=== PATIENT | male | born 1985 | race Caucasian/White ===

== ENCOUNTER 2020-04-09 13:24 | Emergency (ER) | payer MEDICAID ==
[2020-04-09 13:42] VITALS: BP 130/89
--- NOTE | 2020-04-09 13:44 | ED Physician Documentation ---
PD HPI MHE - Stated complaint Stated Complaint: MED REFILL - Chief complaint Chief Complaint: General - History obtained from History obtained from: Patient - History of Present Illness Primary symptom: Depression, Out of meds. No: Psychosis, Manic Timing - onset: How many days ago (had run out of some meds few days ago and now also his Seroquel, which he feels helps a lot. Was supposed to have appt with PCP/Psychiatry last Thursday but it was postponed until next week. Has appt now on the . Needs some meds until then. Has several of his meds still in supply, just needs 4 of them.) Contributing factors: No: Substance abuse - ETOH, Substance abuse - drugs Similar symptoms before: Diagnosis (bipolar disorder) Review of Systems Constitutional: denies: Fever, Chills Nose: denies: Rhinorrhea / runny nose, Congestion Throat: denies: Sore throat Respiratory: denies: Cough GI: denies: Vomiting, Diarrhea Neurologic: denies: Altered mental status, Headache, Head injury PD PAST MEDICAL HISTORY - Past Medical History Psych: Bipolar disorder - Present Medications Home Medications: Ambulatory Orders Medication Instructions Recorded Confirmed [place] ER [Lithobid] 300 mg PO BID #30 tablet 04/09/20 PARoxetine [Paxil] 10 mg PO DAILY #10 tablet 04/09/20 Prazosin HCl 2 mg PO QPM #10 capsule 04/09/20 QUEtiapine [SEROquel] 100 mg PO BID #30 tablet 04/09/20 - Allergies Allergies/Adverse Reactions: Allergies Allergy/AdvReac Type Severity Reaction Status Date / Time No Known Drug Allergies Allergy Verified 04/09/20 13:38 PD ED PE NORMAL - Vitals Vital signs reviewed: Yes - General General: Alert and oriented X 3, No acute distress, Well developed/nourished - HEENT HEENT: Pharynx benign - Neck Neck: Supple, no meningeal sign, No adenopathy - Cardiac Cardiac: RRR, No murmur - Respiratory Respiratory: Clear bilaterally - Derm Derm: Normal color, Warm and dry - Neuro Neuro: Alert and oriented X 3, No motor deficit, Normal speech Results - Vitals Vitals: Vital Signs - 24 hr 04/09/20 04/09/20 13:28 13:32 Temperature 36.8 C 36.8 C Heart Rate 75 75 Respiratory 16 16 Rate Blood Pressure 130/89 H 130/89 H O2 Saturation 99 99 Oxygen O2 Source Room air PD MEDICAL DECISION MAKING - ED course Complexity details: reviewed old records, considered differential (seems reasonable to give Rx for time until has PCP appt, as it was postponed by office and not of patient's doing apparently. ), d/w patient Departure - Departure Disposition: Home, Self Care Clinical Impression: No mechanism for timely refill of medication Bipolar disorder Qualifiers: Active/Remission status: remission status unspecified Qualified Code(s): F31.9 - Bipolar disorder, unspecified Condition: Stable Record reviewed to determine appropriate education?: Yes Prescriptions: [place]ix ER [Lithobid] 300 mg PO BID #30 tablet PARoxetine [Paxil] 10 mg PO DAILY #10 tablet Prazosin HCl 2 mg PO QPM #10 capsule QUEtiapine [SEROquel] 100 mg PO BID #30 tablet Comments: Continue usual medications. I wrote a prescription for 10 days worth which to get you to your appointment scheduled for the eighth and then if it takes a few days to get your prescriptions refilled. Stay well-hydrated. Discharge Date/Time: 04/09/20 14:28
[2020-04-09] MEDS: QUEtiapine 100 MG TABLET PO STA (14:16)
== END 2020-04-09 14:28 | disposition home or self-care (01) ==
LOC: ED 13:24
DX: F31.9 Bipolar disorder, unspecified (principal); Z76.0 Encounter for issue of repeat prescription
CPT/HCPCS: 99282; 99283; A9270

== ENCOUNTER 2020-06-29 11:13 | Outpatient (CLI) | payer MEDICAID ==
[2020-06-29 15:02] LABS: BASOPHILS # (AUTO) 0.1 10^3/uL (0.0-0.1); BASOPHILS % (AUTO) 0.8 %; EOSINOPHILS # (AUTO) 0.5 10^3/uL (0.0-0.7); HGB - HEMOGLOBIN 14.7 g/dL (14.0-18.0); LYMPHOCYTES # (AUTO) 2.5 10^3/uL (1.5-3.5); LYMPHOCYTES % (AUTO) 32.1 %; MEAN CORPUSCULAR HEMOGLOBIN 29.1 pg (27.0-31.0); MEAN CORPUSCULAR HGB CONC 32.8 g/dL (32.0-36.0); MEAN CORPUSCULAR VOLUME 88.5 fL (80.0-94.0); MEAN PLATELET VOLUME 10.2 fL (7.4-11.4); MONOCYTES # (AUTO) 0.5 10^3/uL (0.0-1.0); MONOCYTES % (AUTO) 6.6 %; NEUTROPHILS # (AUTO) 4.2 10^3/uL (1.5-6.6); PLT - PLATELET COUNT 372 10^3/uL (130-450); RED BLOOD COUNT 5.06 10^6/uL (4.70-6.10); RED CELL DISTRIBUTION WIDTH 13.9 % (12.0-15.0); WHITE BLOOD COUNT 7.8 x10^3/uL (4.8-10.8)
[2020-06-29 15:28] LABS: ALBUMIN 4.2 g/dL (3.2-5.5); ALBUMIN/GLOBULIN RATIO 1.2 (1.0-2.2); BILIRUBIN,TOTAL 0.6 mg/dL (0.2-1.0); CALCIUM 9.6 mg/dL (8.5-10.3); CREATININE 0.9 mg/dL (0.6-1.2); LITHIUM 0.17 mmol/L; TOTAL PROTEIN 7.8 g/dL (6.7-8.2)
== END 2020-06-29 11:14 | disposition home or self-care (01) ==
LOC: LAB.S 11:13
PROVIDERS: ATTEND Nurse Practitioner Psychiatric/Mental Health
DX: F33.3 Major depressive disorder, recurrent, severe with psychotic symptoms (principal)
CPT/HCPCS: 36415; 80053; 80178; 85025

== ENCOUNTER 2021-05-16 17:34 | Emergency (ER) | payer MEDICAID ==
[2021-05-16] MEDS ORDERED: AMPICILLIN/SULBACTAM 3 GM in SODIUM CHLORIDE 0.9% MINIBAG 100 ML IV STA (17:59)
[2021-05-16] MEDS ORDERED: VANCOMYCIN INJ 2 GM in SODIUM CHLORIDE 0.9% 500 ML IV STA (17:59)
--- NOTE | 2021-05-16 18:00 | ED Physician Documentation ---
PD HPI HEAD INJURY - Stated complaint Stated Complaint: LT HAND INJ - Chief complaint Chief Complaint: Wound - History obtained from History obtained from: Patient (36-year-old right-handed gentleman who is up-to-date on tetanus accidentally sustained a puncture wound to the left middle finger by a nail yesterday and overnight developed significant pain and swelling of that digit and the pain is tracking up the palm of the hand.) Review of Systems Ten Systems: 10 systems reviewed and negative Constitutional: reports: Reviewed and negative Eyes: reports: Reviewed and negative Ears: reports: Reviewed and negative Nose: reports: Reviewed and negative PD PAST MEDICAL HISTORY - Past Medical History Psych: Bipolar disorder - Present Medications Home Medications: Ambulatory Orders Medication Instructions Recorded Confirmed [place] ER [Lithobid] 300 mg PO BID #30 tablet 04/09/20 05/16/21 PARoxetine [Paxil] 10 mg PO DAILY #10 tablet 04/09/20 05/16/21 Prazosin HCl 2 mg PO QPM #10 capsule 04/09/20 05/16/21 QUEtiapine [SEROquel] 100 mg PO BID #30 tablet 04/09/20 05/16/21 Amox/Clav 875/125 [Augmentin] 1 each PO Q12H #20 tablet 05/16/21 HYDROcod/ACETAM 5/325 [[place] 5/325] 1 - 2 tab PO Q6H PRN #15 tablet 05/16/21 Sulfamethox/Trimeth 800/160 1 each PO BID #14 tablet 05/16/21 [Bactrim Ds 800/160] - Allergies Allergies/Adverse Reactions: Allergies Allergy/AdvReac Type Severity Reaction Status Date / Time No Known Drug Allergies Allergy Verified 04/09/20 13:38 PD ED PE NORMAL - Vitals Vital signs reviewed: Yes - General General: Alert and oriented X 3, No acute distress - HEENT HEENT: PERRL, EOMI - Neck Neck: Supple, no meningeal sign, No bony TTP - Cardiac Cardiac: RRR, No murmur - Respiratory Respiratory: No respiratory distress, Clear bilaterally - Abdomen Abdomen: Non tender - Extremities Extremities: Other (Mild swelling of the proximal part of the third digit and held in slight flexion and pain with extension of that digit. He is tender but not cellulitic along the flexor tendon sheath of the left third digit. Good range of motion at the wrist.) - Neuro Neuro: Alert and oriented X 3, Normal speech Results - Vitals Vitals: Vital Signs - 24 hr 05/16/21 17:43 Temperature 36 C L Heart Rate 81 Respiratory 16 Rate Blood Pressure 136/84 H O2 Saturation 99 Oxygen O2 Source Room air - Labs Labs: Laboratory Tests 05/16/21 05/16/21 18:11 18:11 WBC 13.0 H RBC 5.00 Hgb 14.2 Hct 43.2 MCV 86.4 MCH 28.4 MCHC 32.9 RDW 13.6 Plt Count 326 MPV 9.6 Neut # (Auto) 8.1 H Lymph # (Auto) 3.2 [place] # (Auto) 1.1 H Eos # (Auto) 0.6 Baso # (Auto) 0.1 Absolute Nucleated RBC 0.00 Nucleated RBC % 0.0 Sodium 134 L Potassium 3.4 L Chloride 102 Carbon Dioxide 23 Anion Gap 9.0 BUN 12 Creatinine 1.0 Estimated GFR (MDRD) 84 L Glucose 100 Calcium 9.2 PD MEDICAL DECISION MAKING - ED course ED course: 36-year-old gentleman with early case of flexor tenosynovitis. X-ray shows no bony involvement. He was administered Unasyn and vancomycin here. Case was discussed with our orthopedic surgeon, Dr. Tereso Elliott who would like to see him early tomorrow at 9 AM in his clinic. Departure - Departure Disposition: 01 Home, Self Care Clinical Impression: Flexor tenosynovitis of finger Condition: Good Record reviewed to determine appropriate education?: Yes Instructions: Tendonitis and Tenosynovitis Follow-Up: Tereso Elliott MD [Provider Admit Priv/Credential] - Prescriptions: Amox/Clav 875/125 [Augmentin] 1 each PO Q12H #20 tablet Sulfamethox/Trimeth 800/160 [Bactrim Ds 800/160] 1 each PO BID #14 tablet HYDROcod/ACETAM 5/325 [[place] 5/325] 1 - 2 tab PO Q6H PRN #15 tablet PRN Reason: Pain Comments: You are seen today for an early case of flexor tenosynovitis of the left hand, well this is an early case and we are starting broad-spectrum antibiotics, it will need to be followed very closely to make sure it is not worsening or need operative drainage. To that end our orthopedic surgeon is aware of your case and would like to see you tomorrow, first thing in his clinic at 9 AM. It is in [place]. They should be expecting you. If you do have any troubles, let them know that he I spoke this evening about your case. Keep it elevated as much as possible.
[2021-05-16 18:21] LABS: BASOPHILS # (AUTO) 0.1 10^3/uL (0.0-0.1); BASOPHILS % (AUTO) 0.6 %; EOSINOPHILS # (AUTO) 0.6 10^3/uL (0.0-0.7); EOSINOPHILS % (AUTO) 4.2 %; HCT - HEMATOCRIT 43.2 % (42.0-52.0); HGB - HEMOGLOBIN 14.2 g/dL (14.0-18.0); LYMPHOCYTES # (AUTO) 3.2 10^3/uL (1.5-3.5); LYMPHOCYTES % (AUTO) 24.7 %; MEAN CORPUSCULAR HEMOGLOBIN 28.4 pg (27.0-31.0); MEAN CORPUSCULAR HGB CONC 32.9 g/dL (32.0-36.0); MEAN CORPUSCULAR VOLUME 86.4 fL (80.0-94.0); MEAN PLATELET VOLUME 9.6 fL (7.4-11.4); MONOCYTES # (AUTO) 1.1 10^3/uL (0.0-1.0); MONOCYTES % (AUTO) 8.2 %; NEUTROPHILS # (AUTO) 8.1 10^3/uL (1.5-6.6); NEUTROPHILS % (AUTO) 61.8 %; PLT - PLATELET COUNT 326 10^3/uL (130-450); RED CELL DISTRIBUTION WIDTH 13.6 % (12.0-15.0)
--- NOTE | 2021-05-16 18:23 | XRAY Report ---
PROCEDURE: Hand 3 View LT INDICATIONS: hand inj TECHNIQUE: 3 views of the hand(s) acquired. COMPARISON: None FINDINGS: Bones: No fractures or dislocations. No suspicious bony lesions. Soft tissues: No suspicious soft tissue calcifications. Soft tissue swelling is noted along the vola r surface of the third digit without radiopaque foreign body. IMPRESSION: Soft tissue swelling without fracture or foreign body Reviewed by: Brian Bal MD on 05/16/2021 5:21 PM AKDT Approved by: Brian Bal MD on 05/16/2021 5:21 PM AKDT Station ID: [id number]
[2021-05-16] MEDS ORDERED: KETOROLAC 30 MG/ML VIAL IVP STA (18:27)
[2021-05-16] MEDS ORDERED: HYDROmorphone 1 MG/ML CARPUJECT IVP STA (18:27)
[2021-05-16 18:29] LABS: CALCIUM 9.2 mg/dL (8.5-10.3); POTASSIUM 3.4 mmol/L (3.5-5.0)
[2021-05-16] MEDS ORDERED: HYDROcod/ACET 5/325 Prepack 4 PO STA (20:38)
[2021-05-16 21:17] VITALS: BP 130/76
== END 2021-05-16 21:18 | disposition home or self-care (01) ==
LOC: ED 17:34
DX: M65.842 Other synovitis and tenosynovitis, left hand (principal); S61.233A Puncture wound without foreign body of left middle finger without damage to nail, initial encounter; W45.0XXA Nail entering through skin, initial encounter; Y93.H9 Activity, other involving exterior property and land maintenance, building and construction; Y92.007 Garden or yard of unspecified non-institutional (private) residence as the place of occurrence of the external cause
CPT/HCPCS: 36415; 73130; 80048; 85025; 87040; 96365; 96366; 96367; 96375; 99283; 99284; J1170; J3370

== ENCOUNTER 2022-01-01 00:43 | Emergency (ER) | payer MEDICAID ==
[2022-01-01 00:58] VITALS: BP 143/85
--- NOTE | 2022-01-01 01:33 | ED Physician Documentation ---
PD HPI HEENT - Stated complaint Stated Complaint: SORE TOOTH - Chief complaint Chief Complaint: Heent - History obtained from History obtained from: Patient - History of Present Illness Timing - onset: Enter time (14:00), Today Timing - details: Gradual onset Pain level now: 8 Location: Tooth Improves: Nothing Worsens: Everything Associated symptoms: No: Fever Recently seen: Not recently seen - Additional information Additional information: c/o tooth ache with adjacent swelling, onset approximately 2 PM today. Review of Systems Constitutional: reports: Reviewed and negative Throat: reports: Dental pain / toothache PD PAST MEDICAL HISTORY - Past Medical History Past Medical History: Yes Cardiovascular: None Respiratory: None Neuro: None Endocrine/Autoimmune: None GI: None : None HEENT: None Psych: Depression, Bipolar disorder, Other Musculoskeletal: None Derm: None - Past Surgical History Past Surgical History: No - Present Medications Home Medications: Ambulatory Orders Medication Instructions Recorded Confirmed [place] ER [Lithobid] 300 mg PO BID #30 tablet 04/09/20 01/01/22 PARoxetine [Paxil] 10 mg PO DAILY #10 tablet 04/09/20 01/01/22 Prazosin HCl 2 mg PO QPM #10 capsule 04/09/20 01/01/22 QUEtiapine [SEROquel] 100 mg PO BID #30 tablet 04/09/20 01/01/22 Gabapentin [Neurontin] 300 mg PO TID 01/01/22 01/01/22 HYDROcod/ACETAM 5/325 [[place] 5/325] 1 - 2 tablet PO Q6H PRN #14 tablet 01/01/22 Sertraline HCl 100 mg PO DAILY 01/01/22 01/01/22 clindamycin HCL [Clindamycin HCl] 300 mg PO TID #15 cap 01/01/22 hydrOXYzine HCL [Hydroxyzine HCl] 25 mg PO TID 01/01/22 01/01/22 - Allergies Allergies/Adverse Reactions: Allergies Allergy/AdvReac Type Severity Reaction Status Date / Time No Known Drug Allergies Allergy Verified 01/01/22 00:58 - Social History Does the pt smoke?: Yes Smoking Status: Current every day smoker Does the pt drink ETOH?: No Does the pt have substance abuse?: No - Immunizations Immunizations are current?: No - POLST Patient has POLST: No PD ED PE NORMAL - Vitals Vital signs reviewed: Yes - General General: Alert and oriented X 3, No acute distress, Well developed/nourished PD ED PE EXPANDED - HEENT HEENT: Other (generalized dental attrition. first mandibular molar is TTP without notable swelling of erythema of adjacent gingiva) HEENT Visual: 1 - tenderness Results - Vitals Vitals: Vital Signs - 24 hr 01/01/22 01/01/22 01/01/22 00:56 01:38 01:52 Temperature 36.3 C L Heart Rate 78 Respiratory 17 17 16 Rate Blood Pressure 143/85 H O2 Saturation 99 Oxygen O2 Source Room air PD MEDICAL DECISION MAKING - ED course ED course: I am prescribing a short course of short-acting opioid pain medication for this patient. 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 I have discussed that the opioids are for short term therapy only, and will not be refilled from the ED Departure - Departure Disposition: 01 Home, Self Care Clinical Impression: Pain due to dental caries Condition: Good Instructions: ED Tooth Pain Prescriptions: clindamycin HCL [Clindamycin HCl] 300 mg PO TID #15 cap HYDROcod/ACETAM 5/325 [[place] 5/325] 1 - 2 tablet PO Q6H PRN #14 tablet PRN Reason: Pain Comments: Follow up with your dentist within 5 days for reevaluation. Prescriptions for clindamycin (antibiotic) and hydrocodone/acetaminophen (pain medication) have been electronically submitted to [facility] in [place]. I am prescribing a short course of narcotic pain medication for you. These are potentially dangerous and addictive medications that should be used carefully. These medications may constipate you. Take an [id number] stool softener (docusate) twice daily with plenty of water while taking these medications. If you go 24 hours without a bowel movement, take [id number] miralax, per package instructions. Do not drink or drive while taking these medications. If you received narcotic or sedating medications while in the emergency department, do not drive for 24 hours. Store this medication in a safe, secure place and out of reach of children. It is a violation of federal law to give or sell this medication to another person or to use in a manner other than prescribed. The ED will not refill narcotic prescriptions, including prescriptions lost or stolen. To dispose of unwanted medications: 1. [facility] at [address] in [place] has a medication drop box. They accept prescription medications (in pill form) Thursday through Thursday 9:00 a.m. to 5:00 p.m. 2. The [facility] accepts prescription medications (in pill form only) for disposal year round. Call for more information. 3. Contact the [facility] for the next [employer] sponsored prescription drug collection event. , [phone], or [phone]; Discharge Date/Time: 01/01/22 02:04
[2022-01-01] MEDS ORDERED: CLINDAMYCIN 150 MG CAPSULE PO STA (01:43)
[2022-01-01] MEDS ORDERED: HYDROcod/ACET 5/325 Prepack 4 PO STA (01:44)
== END 2022-01-01 02:04 | disposition home or self-care (01) ==
LOC: ED 00:43
DX: K02.9 Dental caries, unspecified (principal); F17.200 Nicotine dependence, unspecified, uncomplicated; F33.3 Major depressive disorder, recurrent, severe with psychotic symptoms
CPT/HCPCS: 36415; 80178; 99282; A9270

== ENCOUNTER 2022-01-01 10:10 | Outpatient (CLI) | payer MEDICAID ==
[2022-01-01 16:03] LABS: LITHIUM 0.47 mmol/L
== END 2022-01-01 10:11 | disposition home or self-care (01) ==
LOC: LAB.S 10:10
PROVIDERS: ATTEND Nurse Practitioner Psychiatric/Mental Health
DX: F33.3 Major depressive disorder, recurrent, severe with psychotic symptoms (principal)
CPT/HCPCS: 36415; 80178

== ENCOUNTER 2023-11-04 16:07 | Emergency (ER) | payer MEDICAID ==
[2023-11-04] MEDS ORDERED: lidocaine 1% 20 ML MDV SUBQ ONE (16:43)
[2023-11-04] MEDS ORDERED: HYDROmorphone 1 MG/ML CARPUJECT IM STA (17:00)
[2023-11-04] MEDS ORDERED: ceFAZolin 2 GM VIAL IM STA (17:00)
--- NOTE | 2023-11-04 17:04 | ED Physician Documentation ---
PD HPI UPPER EXT INJURY - Stated complaint Stated Complaint: RT HAND LAC - Chief complaint Chief Complaint: Laceration - History obtained from History obtained from: Patient - Additonal information Additional information: The patient comes to the emergency department chief complaint of tablesaw injury just prior to presentation. He states that he was making a phone leal for his niece using a table saw when he injured his right thumb and index finger. He states he appears to have taken some of the skin off his thumb pad, but it is really his index finger he is concerned about. He has a large torn laceration that is bleeding a lot, he says, and thinks it may have hit the bone. He cannot straighten it. He states his last tetanus shot was within 10 years. No other complaints at this time. PD PAST MEDICAL HISTORY - Past Medical History Cardiovascular: None Respiratory: None Neuro: None Endocrine/Autoimmune: None GI: None : None HEENT: None Psych: Depression, Bipolar disorder, Other Musculoskeletal: None Derm: None - Past Surgical History Past Surgical History: No - Present Medications Home Medications: Ambulatory Orders Medication Instructions Recorded Confirmed [place] ER [Lithobid] 300 mg PO BID #30 tablet 04/09/20 01/01/22 PARoxetine [Paxil] 10 mg PO DAILY #10 tablet 04/09/20 01/01/22 Prazosin HCl 2 mg PO QPM #10 capsule 04/09/20 01/01/22 QUEtiapine [SEROquel] 100 mg PO BID #30 tablet 04/09/20 01/01/22 Gabapentin [Neurontin] 300 mg PO TID 01/01/22 01/01/22 HYDROcod/ACETAM 5/325 [[place] 5/325] 1 - 2 tablet PO Q6H PRN #14 tablet 01/01/22 Sertraline HCl 100 mg PO DAILY 01/01/22 01/01/22 clindamycin HCL [Clindamycin HCl] 300 mg PO TID #15 cap 01/01/22 hydrOXYzine HCL [Hydroxyzine HCl] 25 mg PO TID 01/01/22 01/01/22 HYDROcod/ACETAM 5/325 [[place] 5/325] 1 - 2 tablet PO Q6H PRN #20 tablet 11/04/23 cephALEXin [Keflex] 500 mg PO Q6H #28 cap 11/04/23 - Allergies Allergies/Adverse Reactions: Allergies Allergy/AdvReac Type Severity Reaction Status Date / Time bee venom protein (honey bee) Allergy Edema Verified 06/19/22 22:17 Penicillins Allergy Unknown Verified 06/19/22 21:26 - Social History Does the pt smoke?: Yes Smoking Status: Current every day smoker Does the pt drink ETOH?: No Does the pt have substance abuse?: No - Immunizations Immunizations are current?: No - POLST Patient has POLST: No PD ED PE NORMAL - Vitals Vital signs reviewed: Yes - General General: Alert and oriented X 3, No acute distress, Well developed/nourished - HEENT HEENT: Atraumatic, PERRL, EOMI, Moist mucous membranes - Neck Neck: Supple, no meningeal sign - Cardiac Cardiac: Strong equal pulses - Respiratory Respiratory: No respiratory distress - Derm Derm: Normal color, Warm and dry, No rash, Other (Skin avulsion to pad of right thumb. 4 cm, jagged, irregular, Soft tissue tear/laceration overlying the proximal and middle phalanges dorsally of right index finger. Distal proximal phalanx is visible in the wound and appears dissociated from the middle phalanx. No foreign body. Bleeding controll) - Extremities Extremities: Other (Dissociation of the proximal from the middle phalanges of the right index finger. Laceration overlying as above. Unable to extend at all. Joint can be reduced but patient is unable to hold the finger in extension and the bone slips back out of place quickly.) - Neuro Neuro: Alert and oriented X 3, No motor deficit ( Some movement possible in right index finger, though this is limited secondary to tendon disruption.), No sensory deficit (Sensation intact right index finger) - Psych Psych: Normal mood, Normal affect Results - Vitals Vitals: Oxygen O2 Source Room air Procedures - Laceration (location) R index finger Length in cm: 5 Wound type: Irregular, Into subcut fat, Into muscle, Clean, Exposure of bone Neurovascular status: Sensory intact, Vascular intact, Other (Unable to extend at PIP or DIP joints) Tendon involvement: Tendon Injury (Complete obliteration of superficialis and profundus extensor tendons) Anesthesia: Lidocaine 1%, Other (digital block) Wound preparation: Hibiclens, Irrigated copiously NS Skin layer closure: Nylon, Interrupted, Size #-0 - enter number (4.0), Sutures - enter # (8) Other: Patient tolerated well, No complications, Neurovascular intact, Dressing applied, Tetanus UTD - Splint (location) - Minor R index finger Splint applied by: Nurse Type of splint: Metal foam finger splint Other: Patient tolerated well, No complications, Neurovascular intact, Good alignment - Regional nerve block - Minor Nerve block site: Digital - note digit(s) (R index) Right / left: Right Nerve block anesthesia: Lidocaine 1% Nerve block aftercare: Excellent anesthesia, No complications PD Medical Decision Making - ED course Complexity details: reviewed results, re-evaluated patient, considered differential, d/w patient ED course: The patient was given Dilaudid and sent for x-rays of his right hand. He was also given 2 g of Ancef. No obvious fracture was appreciated on x-ray, though clinically, the appearance and texture of the proximal end of middle phalanx indicated that the saw blade may have breached the surface of the bone. The pt's extensor tendons were completely destroyed, and not visible within the wound, even with distraction of the edges all around. I discussed the case with the hand specialist at , Dr. Steward. Imaging studies were pushed there, as well as pictures of the pt's wound. After review of the case, she recommended antibiotics, repair, and follow up in their clinic within the next week, with plan for operative repair. The pt was agreeable to this plan. [facility] will be reaching out to the pt to schedule an appointment, per [facility]. Wound was repaired and finger splinted, as above. We have discussed the usual indications for return. Departure - Departure Disposition: 01 Home, Self Care Clinical Impression: Extensor tendon laceration, finger, open wound Qualifiers: Encounter type: initial encounter Qualified Code(s): S56.429A - Laceration of extensor muscle, fascia and tendon of unspecified finger at forearm level, initial encounter Open dislocation interphalangeal (joint), hand Qualifiers: Encounter type: initial encounter Qualified Code(s): S63.279A - Dislocation of unspecified interphalangeal joint of unspecified finger, initial encounter Condition: Stable Instructions: ED Laceration Hand, ED Laceration Tendon Prescriptions: cephALEXin [Keflex] 500 mg PO Q6H #28 cap HYDROcod/ACETAM 5/325 [[place] 5/325] 1 - 2 tablet PO Q6H PRN #20 tablet PRN Reason: Pain Comments: You have sustained a laceration/wound to your index finger that goes all the way into the joint. You have destroyed both tendons that straighten the joints of your finger. We have given you antibiotics for this today and washed the joint out very well. Your case has been discussed with the on-call hand specialist at [facility], Dr. Steward. She says that you do not need surgery tonight, but she has recommended that you be started on antibiotics and that you follow-up in their clinic within a week. Their schedulers will be calling you to set up a follow-up appointment and talk about repairing your tendons. Prescriptions for both the antibiotics and pain medication have been electronically transmitted to the [facility] in [place], your pharmacy of choice on record. If you notice any signs of infection, including redness spreading progressively away from the wound or streaking up your hand or arm, please have the wound rechecked immediately. The sutures will be removed by the specialist when they follow you up in a week. You should keep the splint in place in the meantime. If your dressing gets dirty or wet, you may change this. Otherwise, please keep the wound clean and dry. Forms: PCP List Discharge Date/Time: 11/04/23 20:42
--- NOTE | 2023-11-04 17:25 | XRAY Report ---
PROCEDURE: Hand 3+V RT INDICATIONS: saw injury to index finger TECHNIQUE: 3 views of the hand(s) acquired. COMPARISON: None. FINDINGS: Bones: On lateral view, there is a possible irregularity at the third proximal phalangeal head. No ot her displaced fracture or dislocation. Soft tissues: Overlying bandaging material is present, causing artifact. Soft tissue injury adjacent to the second finger PIP. IMPRESSION: Possible irregularity versus overlying artifact from bandaging of the second proximal phalangeal head . Consider repeat radiograph if there is concern. Reviewed by: Misael Moncada MD on 11/04/2023 5:24 PM PST Approved by: Misael Moncada MD on 11/04/2023 5:24 PM PST Station ID: [id number]
[2023-11-04] MEDS ORDERED: ONDANSETRON ODT 4 MG TABLET TL STA (19:39)
[2023-11-04] MEDS ORDERED: BACITRACIN ZINC OINT 1 PACKET TOP STA (20:12)
[2023-11-04 20:51] VITALS: BP 110/74; O2SAT 99
== END 2023-11-04 20:42 | disposition home or self-care (01) ==
LOC: ED 16:07
DX: S56.429A Laceration of extensor muscle, fascia and tendon of unspecified finger at forearm level, initial encounter (principal); S63.279A Dislocation of unspecified interphalangeal joint of unspecified finger, initial encounter; W29.8XXA Contact with other powered hand tools and household machinery, initial encounter; F17.200 Nicotine dependence, unspecified, uncomplicated
CPT/HCPCS: 13132; 73130; 96372; 99284; A9270; J1170; Q0162